=== PATIENT | female | born 2000 | race Two or more races ===

== ENCOUNTER 2022-12-27 19:14 | Observation (INO) | payer MEDICAID ==
[~2022-12-27] VITALS: Ht 154.9 cm; Wt 91.2 kg
[2022-12-27] MEDS ORDERED: BETAMETH ACET/BETAMETH NA PH 30 MG/5 ML VIAL IM SCH (20:15)
[2022-12-27 20:30] LABS: BASOPHILS % (AUTO) 0.4 % (0.0-2.0); EOSINOPHILS % (AUTO) 0.4 % (0.0-4.0); HEMOGLOBIN 10.3 g/dL (12.0-16.0); LYMPHOCYTES # (AUTO) 2.2 K/uL (2.5-16.5); LYMPHOCYTES % (AUTO) 20.4 % (20.5-51.1); MEAN CORPUSCULAR HEMOGLOBIN 26 pg (27-31); MEAN CORPUSCULAR HGB CONC 33 g/dL (33-37); MEAN CORPUSCULAR VOLUME 78.1 fL (80-94); MONOCYTES # (AUTO) 0.7 K/uL (0.8-1.0); MONOCYTES % (AUTO) 6.2 % (1.7-9.3); NEUTROPHILS # (AUTO) 7.9 K/uL (1.8-7.7); NEUTROPHILS % (AUTO) 72.6 % (42.2-75.2); PLATELET COUNT (AUTO) 290 K/uL (140-450); RED BLOOD CELL COUNT(AUTO) 3.97 MIL/uL (4.20-5.40); RED CELL DISTRIBUTION WIDTH 14.4 % (11.6-13.7); WHITE BLOOD COUNT (AUTO) 10.9 K/uL (4.8-10.8)
[2022-12-27 20:44] LABS: ALBUMIN 2.9 g/dL (3.4-5.0); ANION GAP 10.2 (8-16); CARBON DIOXIDE 21.5 mmol/L (21-32); CREATININE 0.6 mg/dL (0.6-1.3); POTASSIUM 3.7 mmol/L (3.5-5.1); TOTAL BILIRUBIN 0.2 mg/dL (0.0-1.0)
[2022-12-27 21:05] LABS: PROTHROMBIN TIME 8.9 secs (10.8-13.4)
[2022-12-27 21:55] LABS: URINE TOTAL PROTEIN 37.3 mg/dL (0-12)
[2022-12-28] MEDS ORDERED: ONDANSETRON 4 MG/2 ML VIAL IVP PRN (04:40)
[2022-12-28] MEDS ORDERED: MORPHINE SULFATE 4 MG/ML SYR IVP PRN (04:40)
[2022-12-28] MEDS: LACTATED RINGERS 1,000 ML IV SCH ×2 (04:57→12:46)
--- NOTE | 2022-12-28 09:14 | NUR ---
PATIENT HAS BEEN SCREENED AND CATEGORIZED LOW NUTRITION RISK. PATIENT WILL BE SEEN WITHIN 7 DAYS OF ADMISSION. 01/03/23 REVIEWED BY VA[address] CORTE[address]
[2022-12-28] MEDS ORDERED: BETAMETH ACET/BETAMETH NA PH 30 MG/5 ML VIAL IM ONE (20:33)
== END 2022-12-28 21:50 | disposition home or self-care (01) ==
LOC: MLD 19:14
PROVIDERS: ADMIT Obstetrics & Gynecology; ATTEND Obstetrics & Gynecology
DX: O13.3 Gestational [pregnancy-induced] hypertension without significant proteinuria, third trimester (principal); Z20.822 Contact with and (suspected) exposure to COVID-19; O60.03 Preterm labor without delivery, third trimester; O99.013 Anemia complicating pregnancy, third trimester; D64.9 Anemia, unspecified; Z3A.36 36 weeks gestation of pregnancy
CPT/HCPCS: 36415; 59025; 76805; 80053; 81000; 82570; 85025; 85384; 85610; 85730; 87426; 96361; 96372; 96374; 96375; G0378; J0702; J2270; J2405; Q0092

== ENCOUNTER 2023-01-05 16:09 | Inpatient (IN) | payer MEDICAID ==
[~2023-01-05] VITALS: Ht 154.9 cm; Wt 91.2 kg
--- NOTE | 2023-01-05 16:44 | NUR ---
PATIENT HAS BEEN SCREENED AND CATEGORIZED LOW NUTRITION RISK. PATIENT WILL BE SEEN WITHIN 7 DAYS OF ADMISSION. 01/12/23 REVIEWED BY [address]
[2023-01-05] MEDS ORDERED: PRETAB PO (17:04)
[2023-01-05] MEDS ORDERED: CARBOPROST 250 MCG/ML AMP IM PRN (17:05)
[2023-01-05] MEDS ORDERED: METHYLERGONOVINE 0.2 MG/ML AMP IM PRN (17:05)
[2023-01-05] MEDS ORDERED: LACTATED RINGERS 500 ML IV SCH (17:12)
[2023-01-05 17:17] VITALS: BP 119/80
[2023-01-05] MEDS ORDERED: OXYTOCIN 20 UNITS/LR PREMIX 1,000 ML IV ONE (17:26)
[2023-01-05 17:31] LABS: BASOPHILS # (AUTO) 0.1 K/uL (0.00-0.22); BASOPHILS % (AUTO) 0.6 % (0.0-2.0); EOSINOPHILS % (AUTO) 0.2 % (0.0-4.0); HEMATOCRIT 31.3 % (36-48); HEMOGLOBIN 10.2 g/dL (12.0-16.0); LYMPHOCYTES # (AUTO) 3.1 K/uL (2.5-16.5); LYMPHOCYTES % (AUTO) 22.8 % (20.5-51.1); MEAN CORPUSCULAR HEMOGLOBIN 25 pg (27-31); MEAN CORPUSCULAR HGB CONC 33 g/dL (33-37); MEAN CORPUSCULAR VOLUME 77.6 fL (80-94); MONOCYTES # (AUTO) 0.7 K/uL (0.8-1.0); MONOCYTES % (AUTO) 5.1 % (1.7-9.3); NEUTROPHILS # (AUTO) 9.7 K/uL (1.8-7.7); NEUTROPHILS % (AUTO) 71.3 % (42.2-75.2); PLATELET COUNT (AUTO) 313 K/uL (140-450); RED BLOOD CELL COUNT(AUTO) 4.04 MIL/uL (4.20-5.40); RED CELL DISTRIBUTION WIDTH 14.9 % (11.6-13.7); WHITE BLOOD COUNT (AUTO) 13.6 K/uL (4.8-10.8)
[2023-01-05 17:41] LABS: APPEARANCE,URINE CLEAR (CLEAR); BILIRUBIN,URINE NEGATIVE (NEGATIVE); BLOOD, URINE NEGATIVE (NEGATIVE); COLOR,URINE YELLOW (YELLOW); LEUKOCYTE ESTERASE ,URINE NEGATIVE (NEGATIVE); NITRITE, URINE NEGATIVE (NEGATIVE); UGLUCOSE NEGATIVE (NEGATIVE)
[2023-01-05 18:07] LABS: ALBUMIN 2.9 g/dL (3.4-5.0); ANION GAP 16.5 (8-16); CARBON DIOXIDE 21.5 mmol/L (21-32); CREATININE 0.6 mg/dL (0.6-1.3); TOTAL BILIRUBIN 0.1 mg/dL (0.0-1.0)
[2023-01-05] MEDS: LACTATED RINGERS 1,000 ML IV SCH (18:31)
[2023-01-05 18:45] LABS: PROTHROMBIN TIME 8.6 secs (10.8-13.4)
[2023-01-05] MEDS: MISOPROSTOL 25 MCG TAB VG SCH (20:58)
[2023-01-06] MEDS: LACTATED RINGERS 1,000 ML IV SCH ×2 (02:26→09:14)
[2023-01-06] MEDS: MISOPROSTOL 25 MCG TAB VG SCH (03:01)
[2023-01-06] MEDS ORDERED: ONDANSETRON 4 MG/2 ML VIAL ONE (03:57)
[2023-01-06] MEDS ORDERED: MORPHINE SULFATE 10 MG/ML VIAL ONE ×3 (03:58→10:29)
[2023-01-06] MEDS: ONDANSETRON 4 MG/2 ML VIAL IVP PRN ×2 (04:01→10:33)
[2023-01-06] MEDS: MORPHINE SULFATE 5 MG/ML VIAL IVP PRN ×3 (04:02→10:33)
[2023-01-06] MEDS ORDERED: ROPIVACAINE 0.2%/NS PREMIX 200 ML EPI ONE (10:53)
[2023-01-06] MEDS ORDERED: OXYTOCIN 20 UNITS/LR PREMIX 1,000 ML IV ONE (11:28)
[2023-01-06] MEDS ORDERED: OXYTOCIN 20 UNITS in LACTATED RINGERS 1,000 ML IV SCH ×2 (11:40→18:45)
[2023-01-06] MEDS ORDERED: bisacodyL 5 MG TABEC PO PRN (15:10)
[2023-01-06] MEDS ORDERED: METHYLERGONOVINE 0.2 MG/ML AMP IM PRN ×2 (15:10→18:45)
[2023-01-06] MEDS ORDERED: OXYTOCIN 10 UNITS/ML VIAL IM PRN (15:10)
[2023-01-06] MEDS ORDERED: IBUPROFEN 600 MG TAB PO PRN (15:10)
[2023-01-06] MEDS ORDERED: SIMETHICONE 80 MG TAB.CHEW PO PRN (15:10)
[2023-01-06] MEDS ORDERED: BENZOCAINE/MENTHOL 20%-0.5% 60 GM CAN TP PRN (15:10)
[2023-01-06] MEDS ORDERED: IBUPROFEN 800 MG TAB PO PRN ×2 (15:10→20:30)
[2023-01-06] MEDS ORDERED: HYDROcodone/APAP 5/325 MG 1 TAB TAB PO PRN (15:10)
[2023-01-06] MEDS ORDERED: METHYLERGONOVINE 0.2 MG TAB PO PRN (15:10)
[2023-01-06] MEDS ORDERED: DOCUSATE SODIUM 100 MG GELCAP PO PRN (15:10)
[2023-01-06] MEDS ORDERED: MEASLES, MUMPS, AND RUBELLA 1 VIAL SQVAC ONE (15:10)
[2023-01-06] MEDS ORDERED: ONDANSETRON 4 MG/2 ML VIAL IVP PRN (18:45)
[2023-01-06] MEDS ORDERED: MORPHINE SULFATE 5 MG/ML VIAL IVP PRN (18:45)
[2023-01-06] MEDS ORDERED: LACTATED RINGERS 1,000 ML IV SCH (18:45)
[2023-01-06] MEDS: HYDROcodone/APAP 5/325 MG 1 TAB TAB PO PRN (19:57)
[2023-01-07] MEDS: HYDROcodone/APAP 5/325 MG 1 TAB TAB PO PRN ×3 (04:32→21:13)
[2023-01-07 07:50] LABS: HEMATOCRIT 28.4 % (36-48); HEMOGLOBIN 9.2 g/dL (12.0-16.0)
[2023-01-08] MEDS: HYDROcodone/APAP 5/325 MG 1 TAB TAB PO PRN (09:16)
== END 2023-01-08 10:25 | disposition home or self-care (01) | DRG 560 ==
LOC: MLD 16:09 → MFCC 01-06 17:45
PROVIDERS: ADMIT Obstetrics & Gynecology; ATTEND Obstetrics & Gynecology
PROC: 10E0XZZ Delivery of Products of Conception, External Approach (ICD-10-PCS; principal; 2023-01-06)
PROC: 0KQM0ZZ Repair Perineum Muscle, Open Approach (ICD-10-PCS; 2023-01-06)
PROC: 3E0R3BZ Introduction of Anesthetic Agent into Spinal Canal, Percutaneous Approach (ICD-10-PCS; 2023-01-06)
PROC: 00HU33Z Insertion of Infusion Device into Spinal Canal, Percutaneous Approach (ICD-10-PCS; 2023-01-06)
DX: O14.94 Unspecified pre-eclampsia, complicating childbirth (principal); Z37.0 Single live birth; D64.9 Anemia, unspecified; O70.1 Second degree perineal laceration during delivery; O90.81 Anemia of the puerperium; Z20.822 Contact with and (suspected) exposure to COVID-19; Z3A.37 37 weeks gestation of pregnancy
CPT/HCPCS: 36415; 51702; 59200; 76815; 80053; 81003; 85018; 85025; 85610; 85730; 86592; 86886; 86900; 86901; J2270; J2405; J2590; J2795; J7120; Q0092